=== PATIENT | male | born 1990 | race Caucasian/White ===

== ENCOUNTER 2017-04-05 20:27 | Emergency (ER) | payer OTHER ==
[2017-04-05 20:47] LABS: Urine Drugs of Abuse Note Disclamer
[2017-04-05 20:47] LABS: Hematocrit 43.2 % (35.5-45.6); Hemoglobin 14.4 gm/dl (11.8-15.2); Mean Corpuscular HGB Conc 33 % (32-34); Mean Corpuscular Hemoglobin 30 pg (28-32); Mean Corpuscular Volume 89 fl (84-94); Platelet Count 266 K/mm3 (140-440); Red Blood Count 4.84 M/mm3 (3.65-5.03); Red Cell Distribution Width 12.4 % (13.2-15.2); White Blood Count 11.3 K/mm3 (4.5-11.0)
[2017-04-05 20:54] LABS: INR 1.12 (0.87-1.13); Partial Thromboplastin Time 26.9 Sec. (24.2-36.6)
[2017-04-05 21:02] LABS: Bilirubin,Urine NEG (Negative); Blood,Urine NEG (Negative); Ketones,Urine NEG (Negative); Leukocyte Esterase,Urine NEG (Negative); Nitrite,Urine NEG (Negative); Protein,Urine <15 mg/dL mg/dL (Negative); Urobilinogen,Urine < 2.0 mg/dL (<2.0); WBC,Urine < 1.0 /HPF (0.0-6.0)
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
[2017-04-05 21:07] LABS: Alanine Aminotransferase 24 units/L (7-56); Albumin 4.3 g/dL (3.9-5); Albumin/Globulin Ratio 1.5 %; Alkaline Phosphatase 57 units/L (35-129); Anion Gap 18 mmol/L; Blood Urea Nitrogen 15 mg/dL (9-20); Carbon Dioxide 25 mmol/L (22-30); Creatine Kinase 184 units/L (55-170); Glucose 123 mg/dL (75-100); Potassium 3.6 mmol/L (3.6-5.0); Sodium 140 mmol/L (137-145); Total Protein 7.2 g/dL (6.3-8.2)
--- NOTE | 2017-04-05 21:35 | Cat Scan Report ---
FINAL REPORT EXAM: CT HEAD/BRAIN WO CON HISTORY: AMS TECHNIQUE: CT imaging acquired through the head without intravenous contrast. Transaxial reformations are provided. PRIORS: None. FINDINGS: The ventricles, cisterns and sulci are normal. No intraparenchymal or extra-axial mass, hemorrhage, or mass effect. Boles and white-matter differentiation is normal. Normal spherical shape of the globes. Paranasal sinuses and mastoid air cells are clear. No skull or facial fracture visualized. IMPRESSION: No acute intracranial abnormality. Consider additional imaging including MRI for worsening/persistent symptoms.
[2017-04-05 22:04] LABS: Basophils % (Manual) 0 % (0.0-1.8); Blastocytes % (Manual) 0 %
[2017-04-05 22:05] LABS: Diff Status Complete; Platelet Estimate Consistent w Auto; RBC Morphology Normal
[2017-04-05] MEDS ORDERED: NACL 0.9% 1000 ML 1,000 ML IV ONE (23:41)
[2017-04-06 01:53] VITALS: BP 117/72
== END 2017-04-06 02:06 | disposition home or self-care (01) ==
LOC: ED 20:27
DX: R41.82 Altered mental status, unspecified (principal)
CPT/HCPCS: 36415; 70450; 80053; 80307; 81001; 82140; 82550; 82962; 84443; 84484; 85007; 85025; 85610; 85730; 86850; 86900; 86901; 93005; 93010; 96360; 99285; G0480; J7030; 80320